=== PATIENT | female | born 1965 | race Caucasian/White ===

== ENCOUNTER 2017-09-15 14:55 | Emergency (ER) | payer SELFPAY ==
--- NOTE | 2017-09-15 17:08 | UC ---
Respiratory Complaint HPI - HPI Summary HPI Summary: Pt presents with body aches, cough, tiredness, and sinus congestion since yesterday. She works as a cashier manager. She has been around several friends that have been dx'd with the flu. She has not taken anything for his symptoms. Denies fever, chills, SOB, chest pain, abdominal pain, n/v/d/c Her BP is elevated today. She currently denies headache, dizziness, weakness, vision changes, numbness, or tingling. On manual recheck it was 168/80 - History of Current Complaint Chief Complaint: UCRespiratory Stated Complaint: COUGH, CONGESTED Time Seen by Provider: 09/15/17 17:07 Hx Obtained From: Patient Hx Last Menstrual Period: 1 MONTH AGO Onset/Duration: Sudden Onset Timing: Constant Severity Initially: Mild Severity Currently: Mild Character: Cough: Nonproductive - Allergies/Home Medications Allergies/Adverse Reactions: Allergies Allergy/AdvReac Type Severity Reaction Status Date / Time Bee Venom Allergy Anaphylatic Verified 09/15/17 15:47 Shock Home Medications: Home Medications Gabapentin CAP(*) [Neurontin 300 CAP(*)] 300 mg PO BID 09/15/17 [History Confirmed 09/15/17] PMH/Surg Hx/FS Hx/Imm Hx - Surgical History Surgical History: Yes Surgery Procedure, Year, and Place: 4 C-SECTIONS, ORIF RIGHT HUMERUS, TONSILLECTOMY - Family History Known Family History: Positive: Cardiac Disease, Hypertension - mother - Social History Occupation: Employed Full-time Lives: With Family Alcohol Use: None Substance Use Type: None Smoking Status (MU): Current Every Day Smoker Type: Cigarettes Amount Used/How Often: 5/DAY Household Exposure Type: Cigarettes Cessation Counseling: Counseled 3+Min - 10 Min Review of Systems Constitutional: Fatigue, Other - Body aches Skin: Negative Eyes: Negative ENT: Nasal Discharge, Sinus Congestion, Sinus Pain/Tenderness Respiratory: Cough Cardiovascular: Negative Gastrointestinal: Negative Psychological: Negative All Other Systems Reviewed And Are Negative: Yes Physical Exam Triage Information Reviewed: Yes Appearance: Well-Appearing, No Pain Distress, Well-Nourished Vital Signs: Initial Vital Signs Temp 97.9 F 09/15/17 15:43 Pulse 103 09/15/17 15:43 Resp 18 09/15/17 15:43 BP 189/78 09/15/17 15:43 Pulse Ox 95 01/19/18 15:43 Vital Signs Reviewed: Yes Eyes: Positive: Conjunctiva Clear. Negative: Conjunctiva Inflamed, Discharge ENT: Positive: Hearing grossly normal, Pharynx normal, TMs normal, Uvula midline. Negative: Pharyngeal erythema, Nasal congestion, Nasal drainage, TM bulging, TM dull, TM red, Tonsillar swelling, Tonsillar exudate, Hoarse voice, Sinus tenderness Neck: Positive: Supple, Nontender, No Lymphadenopathy Respiratory: Positive: Chest non-tender, No respiratory distress, No accessory muscle use, Wheezing - Moderate throughout Cardiovascular: Positive: RRR, No Murmur, Pulses Normal Neurological: Positive: Alert Psychological: Positive: Age Appropriate Behavior Skin: Negative: rashes UC Diagnostic Evaluation - Laboratory O2 Sat by Pulse Oximetry: 95 Re-Evaluation - Re-Evaluation First Eval Re-Evaluation Time: 18:06 Change: Improved Comment: Improved lung sounds. No wheezing. Pt reports feeling like she can "take a deep breath again" Respiratory Course/Dx - Course Course Of Treatment: POC flu negative. Her wheezing was very scant after duoneb treatment. Given her symptoms and recent exposure, will treat as influenza and rx for Tamiflu and Albuterol. - Differential Dx/Diagnosis Provider Diagnoses: Body aches. Fatigue. Bronchitis Discharge - Discharge Plan Condition: Stable Disposition: HOME Prescriptions: Albuterol HFA INHALER* [Ventolin HFA Inhaler*] 1 - 2 puff INH Q6H PRN #1 mdi PRN Reason: Sob/Wheezing Oseltamivir CAP* [Tamiflu CAP*] 75 mg PO BID #10 cap Patient Education Materials: Influenza (DC), Acute Bronchitis (ED) Referrals: No Primary Care Phys,NOPCP [Primary Care Provider] - Additional Instructions: If you develop a fever, shortness of breath, chest pain, new or worsening symptoms - please call your PCP or go to the ED. Your blood pressure was high at todays visit. Please see your primary provider within 4 weeks for recheck and re-evaluation.
[2017-09-15] MEDS ORDERED: Albuterol/Ipratropium NEB.SOL* Albuterol 2.5 MG/Ipratropium 0.5 MG 3 ML INH ONE (17:42)
[2017-09-15 19:08] VITALS: BP 180/78
== END 2017-09-15 18:15 | disposition home or self-care (01) ==
LOC: UCEAST 14:55
DX: J40 Bronchitis, not specified as acute or chronic (principal); R53.83 Other fatigue; R52 Pain, unspecified; R03.0 Elevated blood-pressure reading, without diagnosis of hypertension; F17.210 Nicotine dependence, cigarettes, uncomplicated; Z91.030 Bee allergy status
CPT/HCPCS: 87502; 99212; A9270-GY; G0463

== ENCOUNTER 2018-01-08 07:13 | Day surgery (SDC) | payer OTHER ==
[~2018-01-08 07:13] MED LIST: Buffered Lidocaine 0.9% SYRIN* 5 ML/SYR SYRINGE INTRADERM ONE; Dexamethasone IV* 4 MG/ML 1 ML (4 MG) IV SLOW PU ONE; Famotidine TAB* 20 MG PO ONE
[2018-01-08] MEDS ORDERED: Dexamethasone IV* 4 MG/ML 1 ML (4 MG) ONE (07:19)
[2018-01-08] MEDS ORDERED: Famotidine TAB* 20 MG ONE (07:20)
[2018-01-08] MEDS ORDERED: ceFAZolin 2 GM PREMIX (*) 2 GM/50 ML BAG IVPB ONE (07:21)
[2018-01-08] MEDS ORDERED: Midazolam* 1 MG/ML 2 ML VIAL (2 MG) ONE (08:32)
[2018-01-08] MEDS ORDERED: fentaNYL* 50 MCG/ML 2 ML VIAL (100 MCG VIAL) ONE ×2 (08:32→11:26)
[2018-01-08] MEDS ORDERED: Bupivacaine 0.5% PF 10 ML VIAL INJ ONE (09:58)
[2018-01-08] MEDS ORDERED: Propofol* 10 MG/ML 20 ML BTL IV PUSH ONE (09:58)
[2018-01-08] MEDS ORDERED: Naloxone* 0.4 MG/ML 1 ML VIAL IV PRN (10:05)
[2018-01-08] MEDS ORDERED: Ondansetron ODT TAB* 4 MG PO PRN (10:05)
[2018-01-08] MEDS ORDERED: oxyCODONE TAB* 5 MG TAB ONE (11:26)
[2018-01-08] MEDS ORDERED: Acetaminophen ADULT LIQ* 650 MG/20.3 ML UDC ONE (11:27)
[2018-01-08] MEDS: fentaNYL* 50 MCG/ML 2 ML VIAL (100 MCG VIAL) IV PRN ×2 (11:32→11:55)
[2018-01-08 12:46] VITALS: BP 160/90
--- NOTE | 2018-01-09 07:31 | OP ---
DATE OF OPERATION: 01/08/18 - [facility] DATE OF : 63 ATTENDING SURGEON: Alexey Abad MD CAR FRAMER: Talita Martinez PA-C. PRE-OP DIAGNOSIS: Peroneus brevis split tear, left ankle. POST-OP DIAGNOSIS: Peroneus brevis split tear, left ankle. OPERATIVE PROCEDURE: Left peroneus brevis repair and groove deepening, left fibula. DESCRIPTION OF PROCEDURE: The patient was taken to the operating room where a longitudinal incision was made over the fibula coursing down to the os peroneum. The peroneus brevis was inspected and noted to have a 4 to 5 cm longitudinal split tear at the posterior aspect of the lateral malleolus. Peroneus longus was intact. The peroneus brevis was debrided slightly and then tubularized with a running 3-0 Vicryl suture at this level. The groove was deepened behind the fibula by creating an osteotomy through the posterolateral cortex driving the posterior aspect of the groove anteriorly. Two lone sutures of #1 Vicryl were then passed to repair the retinaculum and the remaining portion of the peroneal sheath repaired up to the fibular periosteum. We then irrigated thoroughly closing with Vicryl and nylon sutures and a compression dressing, plaster splint. [id number]/[facility] #: [id number] [facility] CENTERShira
== END 2018-01-08 12:59 | disposition home or self-care (01) ==
LOC: OR 07:13
PROVIDERS: ATTEND Orthopaedic Surgery
DX: S96.812A Strain of other specified muscles and tendons at ankle and foot level, left foot, initial encounter (principal); W22.8XXA Striking against or struck by other objects, initial encounter; Y92.89 Other specified places as the place of occurrence of the external cause; Y99.0 Civilian activity done for income or pay; F17.210 Nicotine dependence, cigarettes, uncomplicated; T78.49XA Other allergy, initial encounter
CPT/HCPCS: 88304; A9270-GY; J0690; J1100; J2250; J2704; J3010

== ENCOUNTER → 2018-10-08 08:50 | Day surgery (SDC) | payer OTHER ==
[~2018-10-08 08:50] MED LIST changes: +Acetaminophen TAB* 325 MG PO PRN; -Buffered Lidocaine 0.9% SYRIN* 5 ML/SYR SYRINGE INTRADERM ONE; +Buffered Lidocaine 1% SYRIN* 1 ML/SYRINGE INTRADERM ONE; +Bupivacaine 0.5%* 50 ML VIAL ONE; -Dexamethasone IV* 4 MG/ML 1 ML (4 MG) IV SLOW PU ONE; +DiMENhydriNATE IV* 50 MG/ML VIAL IV PUSH PRN; -Famotidine TAB* 20 MG PO ONE; +Ketorolac INJ* 30 MG/ML 1 ML VIAL IV PRN; +Lactated Ringers 1000 ML Bag* 1,000 ML IV SCH; +Lidocaine 2% PF * 5 ML VIAL ONE; +Lidocaine 2% PF* 10 ML AMP ONE; +Midazolam* 1 MG/ML 2 ML VIAL (2 MG) ONE; +Naloxone* 0.4 MG/ML 1 ML VIAL IV PRN; +Propofol* 10 MG/ML 20 ML BTL ONE; +Succinylcholine* 20 MG/ML 10 ML VIAL ONE; +Sugammadex * 200 MG/2 ML VIAL IV PUSH ONE; +ceFAZolin 2 GM PREMIX in ORs 2 GM/50 ML BAG IVPB ONE; +fentaNYL* 50 MCG/ML 2 ML VIAL (100 MCG VIAL) IV PRN; +fentaNYL* 50 MCG/ML 2 ML VIAL (100 MCG VIAL) ONE; +oxyCODONE TAB* 5 MG TAB ONE; +oxyCODONE TAB* 5 MG TAB PO PRN
[2018-10-08] MEDS: Buffered Lidocaine 1% SYRIN* 1 ML/SYRINGE INTRADERM ONE ×2 (10:01→10:02)
--- NOTE | 2018-10-08 13:09 | OP ---
OPERATIVE REPORT: DATE OF OPERATION: 10/08/18 DATE OF : 63 SURGEON: Alexey Abad MD. PRE-OP DIAGNOSIS: Scarred recurrent tendinitis, left peroneus brevis and longus tendons. POST-OP DIAGNOSES: Scarred recurrent tendinitis, left peroneus brevis and longus tendons with small splitting area of peroneus brevis and scarring into the peroneus brevis and significant tenosynovitis of the peroneus brevis. PROCEDURES PERFORMED: Debridement of the peroneus brevis, resection of synovium, debridement of the groove behind the fibula, and tenodesis peroneus brevis to peroneus longus. DESCRIPTION OF PROCEDURE: The patient was taken to the operating room, lateral positioning used. We opened up longitudinally over the distal fibula. I reflected the posterior retinaculum away from th e posterior edge of the fibula. The peroneus brevis was not tracking at all, completely scarred in d own into the fibula groove area. We freed up the tendon away from this groove and the synovectomy of the groove itself. The peroneus brevis had some mild striation longitudinally in this portion throu gh the back of the groove. These areas were debrided with a dissecting scissor as well as synovectom y of both brevis longus tendons. We then performed a tenodesis using a 3-0 Monocryl whipstitch with the more lateral and then the more medial edges of both the tendons. They tracked well into the fibu la at this point, so no additional groove modification was performed. We then irrigated thoroughly, bringing the retinaculum up to the periosteum with interrupted 2-0 Vicryl sutures. We irrigated the soft tissues and closed with 3-0 Monocryl, jacinta for the skin and a compression dressing and plaste r splint. [id number]/[facility] #: [id number]
[2018-10-08 13:44] VITALS: BP 164/84
== END | disposition home or self-care (01) ==
LOC: OR 08:50
PROVIDERS: ATTEND Orthopaedic Surgery
DX: M76.72 Peroneal tendinitis, left leg (principal); Z87.828 Personal history of other (healed) physical injury and trauma; Z87.891 Personal history of nicotine dependence; J45.909 Unspecified asthma, uncomplicated; Z87.442 Personal history of urinary calculi
CPT/HCPCS: A9270-GY; J0330; J0690; J2001; J2250; J2704; J3010

== ENCOUNTER 2019-09-04 08:43 | Day surgery (SDC) | payer OTHER ==
[~2019-09-04 08:43] MED LIST changes: -Acetaminophen TAB* 325 MG PO PRN; -Bupivacaine 0.5%* 50 ML VIAL ONE; -DiMENhydriNATE IV* 50 MG/ML VIAL IV PUSH PRN; -Ketorolac INJ* 30 MG/ML 1 ML VIAL IV PRN; -Lidocaine 2% PF * 5 ML VIAL ONE; -Lidocaine 2% PF* 10 ML AMP ONE; -Midazolam* 1 MG/ML 2 ML VIAL (2 MG) ONE; -Naloxone* 0.4 MG/ML 1 ML VIAL IV PRN; -Propofol* 10 MG/ML 20 ML BTL ONE; -Succinylcholine* 20 MG/ML 10 ML VIAL ONE; -Sugammadex * 200 MG/2 ML VIAL IV PUSH ONE; -ceFAZolin 2 GM PREMIX in ORs 2 GM/50 ML BAG IVPB ONE; -fentaNYL* 50 MCG/ML 2 ML VIAL (100 MCG VIAL) IV PRN; -fentaNYL* 50 MCG/ML 2 ML VIAL (100 MCG VIAL) ONE; -oxyCODONE TAB* 5 MG TAB ONE; -oxyCODONE TAB* 5 MG TAB PO PRN
[2019-09-04] MEDS ORDERED: Buffered Lidocaine 1% SYRIN* 1 ML/SYRINGE INTRADERM ONE (09:02)
[2019-09-04] MEDS ORDERED: ceFAZolin 2 GM in NS PREMIX(*) 2 GM/100 ML BAG IVPB ONE (09:03)
[2019-09-04] MEDS ORDERED: Midazolam* 1 MG/ML 2 ML VIAL (2 MG) ONE (10:46)
[2019-09-04] MEDS ORDERED: fentaNYL* 50 MCG/ML 2 ML VIAL (100 MCG VIAL) ONE (10:46)
[2019-09-04] MEDS ORDERED: Ibuprofen TAB* 400 MG PO PRN (10:55)
[2019-09-04] MEDS ORDERED: Naloxone* 0.4 MG/ML 1 ML VIAL IV PRN (10:56)
[2019-09-04] MEDS ORDERED: HYDROmorphone INJ1* 1 MG/ML SYRINGE IV PRN (10:56)
[2019-09-04] MEDS ORDERED: oxyCODONE TAB* 5 MG TAB PO PRN (10:56)
[2019-09-04] MEDS ORDERED: Ropivacaine 0.2% * 2 MG/ML VIAL ONE (11:11)
[2019-09-04] MEDS ORDERED: Lidocaine 1% w EPI 1:200,000* SDV 30 ML VIAL ONE (11:11)
[2019-09-04] MEDS ORDERED: Lidocaine 2% PF* 10 ML AMP ONE (11:46)
[2019-09-04] MEDS ORDERED: Dexamethasone IV* 4 MG/ML 1 ML (4 MG) ONE (11:46)
[2019-09-04] MEDS ORDERED: Ondansetron INJ* 2 MG/ML VIAL ONE (11:46)
[2019-09-04] MEDS ORDERED: Propofol* 10 MG/ML 20 ML BTL ONE (11:46)
[2019-09-04] MEDS ORDERED: Phenylephrine 40 MCG/ML SYRINGE ONE (11:58)
[2019-09-04] MEDS ORDERED: oxyCODONE TAB* 5 MG TAB ONE (12:54)
[2019-09-04 13:49] VITALS: BP 145/94
--- NOTE | 2019-09-04 21:21 | OP ---
DATE OF OPERATION: 09/04/19 [facility] DATE OF : 63 SURGEON: Pineda Mcgowan MD COMMUNITY MIDWIFE: GHADA Fields. An assistant to the dean was needed for the entirety of the case to help with positioning, retraction, and was utilized throughout all portions of the case. ANESTHESIOLOGIST: Dr. Olivier. ANESTHESIA: General. PRE-OP DIAGNOSIS: Right knee patellar chondrosis and synovitis. POST-OP DIAGNOSIS: Right knee patellar chondrosis and synovitis. OPERATIVE PROCEDURE: Right knee arthroscopy with synovectomy, the anteromedial and prepatellar compartments as well as chondroplasty of the patella and the trochlea. COMPLICATIONS: None. ESTIMATED BLOOD LOSS: Minimal. INDICATIONS: Evangelina Acosta is a 54-year-old female who has had a workers' comp claim for several years for her foot and knee. She was diagnosed with a small chondral flap about her patella. She has failed conservative management. She has persistent pain. She knows that at some point she will need to have something along the lines of replacement done, but she has not yet been treated with synovectomy or chondroplasty. She does have a sharp catching and mechanical symptoms. After extensive discussion of risks and benefits of operative versus nonoperative treatment, she has elected to proceed with surgical treatment. Risks include but not limited to bleeding; infection; damage to nerves, vessels, surrounding structures; wound nonhealing; persistent pain; need for further surgery; scarring; stiffness; incomplete relief of symptoms; and risks of anesthesia. DESCRIPTION OF PROCEDURE: The patient was greeted in the preoperative area by the attending surgeon. Correct extremity was marked and consent was confirmed. The patient was brought back to the operative suite, placed in supine position on the operating table, then underwent general anesthesia and LMA intubation after which she was appropriately positioned on the operating table. A non-sterile tourniquet was placed high in the proximal thigh. The lateral post was positioned. The right leg was then prepped and draped in the usual sterile fashion beginning with chlorhexidine soap, scrub, and alcohol wipe and a final prep of ChloraPrep. After appropriate surgical pause indicating side, site, procedure and administration of antibiotics, the knee was intra-articularly injected with 1% lidocaine with epi. The anterolateral portal was made sharply with 11 blade. Scope was introduced to the joint. There was abundant synovitis and thick scar tissue that was present. Anteromedial portal was made in an outside-in fashion. A shaver was used to debride back the thick bursa. There were plica and there was thick band of tissue anteriorly as well as medial and laterally. These were all debrided back carefully. The trochlea had some evidence of grade 2 changes with unstable flaps. This was debrided back using shaver. ACL and PCL were intact. The medial compartment was examined and was found to be intact and pristine. The lateral compartment was intact as well. No evidence of chondral changes nor meniscal pathology. The knee was placed in full extension. The patellofemoral joint was examined. Again the trochlea had some small areas where there appeared to be kissing lesion with the patella, which had about the superior central aspect grade 2 changes, possibly borderline grade 3. These were debrided back. Once the synovitis was complete, the patella was completely mobilized and excess scar tissue was removed. The knee was then thoroughly lavaged. Final images were obtained. Portals were closed with 3-0 nylon. Sterile dressings and Cryo/Cuff were applied. She was awoken from anesthesia and transferred to PACU in stable condition. POSTOPERATIVE PLAN: She will be weightbearing as tolerated with crutches. Range of motion as tolerated. Discharged on pain medications. DVT prophylaxis was considered but deferred due to no previous personal or family history. I will see the patient back in 10 to 14 days. [id number]/[facility] #: [id number] [place]
== END 2019-09-04 13:53 | disposition home or self-care (01) ==
LOC: OR 08:43
PROVIDERS: ATTEND Orthopaedic Surgery
DX: M17.31 Unilateral post-traumatic osteoarthritis, right knee (principal); M65.861 Other synovitis and tenosynovitis, right lower leg; M93.861 Other specified osteochondropathies, right lower leg; M25.561 Pain in right knee; J30.2 Other seasonal allergic rhinitis; Z87.891 Personal history of nicotine dependence
CPT/HCPCS: A9270-GY; J0690; J1100; J2001; J2250; J2405; J2704; J2795; J3010

== ENCOUNTER 2020-02-20 22:44 | Inpatient (IN) ==
[2020-02-20] MEDS ORDERED: Albuterol 0.5% CONC NEB.SOL 5 mg/ml 20 ml BOT INH ONE (22:49)
[2020-02-20] MEDS ORDERED: Dexamethasone IV 4 MG/ML VIAL 1 ml VIAL PO ONE (22:49)
[2020-02-20 23:09] LABS: ABS Basophils 0.1 10^3/ul (0-0.2); ABS Eosinophils 0.2 10^3/ul (0-0.6); ABS Monocytes 1.2 10^3/ul (0-0.8); Eosinophil % 1.1 %; Hematocrit 42 % (35-47); Hemoglobin 13.1 g/dL (12.0-16.0); Lymphocyte % 26.4 %; Mean Corpuscular HGB Conc 31 g/dL (31-36); Mean Corpuscular Hemoglobin 27 pg (27-31); Mean Corpuscular Volume 85 fL (80-97); Mean Platelet Volume 9.8 fL (7.4-10.4); Nucleated Red Blood Cells % 0.1; Platelet Count 315 10^3/uL (150-450); Red Blood Count 4.91 10^6 /uL (3.70-4.87); Red Cell Distribution Width 16 % (10-15)
[2020-02-20] MEDS ORDERED: nitroGLYCERIN DRIP 25,000 MCG/250 ML BTL IV ONE (23:20)
[2020-02-20] MEDS ORDERED: Furosemide 40 mg/4 ml IV VIAL IV SLOW PU ONE (23:20)
[2020-02-20 23:28] LABS: ALT 43 U/L (7-52); AST 54 U/L (13-39); Albumin 3.8 g/dL (3.2-5.2); Albumin/Globulin Ratio 1.2 (1-3); Alkaline Phosphatase 102 U/L (34-104); Anion Gap 9 mmol/L (2-11); BUN/Creatinine Ratio 9.5 (8-20); Blood Urea Nitrogen 10 mg/dL (6-24); CO2 Carbon Dioxide 25 mmol/L (22-32); Calcium 8.7 mg/dL (8.6-10.3); Chloride 102 mmol/L (101-111); EGFR African American 65.8 (>60); EGFR Non-African American 54.4 (>60); Globulin 3.3 g/dL (2-4); Glucose 383 mg/dL (70-100); Potassium 4.8 mmol/L (3.5-5.0); Sodium 136 mmol/L (135-145); Total Protein 7.1 g/dL (6.4-8.9)
[2020-02-20] MEDS ORDERED: Rocuronium 50 mg VIAL 10 mg/ml 5 ml VIAL (50 mg) ONE (23:31)
[2020-02-20] MEDS ORDERED: Succinylcholine 200 mg VIAL 20 mg/ml 10 ml VIAL (200 mg) ONE ×2 (23:32→23:56)
[2020-02-20 23:37] LABS: Troponin I 0.06 ng/mL (<0.03)
[2020-02-20] MEDS ORDERED: Succinylcholine 200 mg VIAL 20 mg/ml 10 ml VIAL (200 mg) IV ONE (23:40)
[2020-02-20] MEDS ORDERED: fentaNYL 100 mcg/2 ml 50 MCG/ML VIAL IV SLOW PU ONE (23:42)
[2020-02-20] MEDS ORDERED: Etomidate 20 mg/10 ml 2 MG/ML 10 ml VIAL IV ONE (23:42)
[2020-02-20] MEDS ORDERED: Propofol 10 mg/ml 100 ML BTL 100 ML IV ONE (23:42)
[2020-02-20] MEDS ORDERED: Propofol 10 mg/ml 100 ML BTL 100 ML ONE (23:48)
[2020-02-20] MEDS ORDERED: Etomidate 40 mg/20 ml (2 MG/ML) 20 ml VIAL (40 mg) ONE (23:56)
[2020-02-21] MEDS ORDERED: Ondansetron 4 mg VIAL 2 MG/ML 2 ml VIAL IV PRN (00:27)
[2020-02-21] MEDS ORDERED: Dextrose 50% Syringe 50 ml 25 GM/50 ML SYRINGE IV PUSH PRN (00:34)
[2020-02-21 00:54] LABS: Urine Appearance Cloudy; Urine Bilirubin Negative (Negative); Urine Blood 1+ (Negative); Urine Color Yellow; Urine Glucose 1+(50 mg/dL) (Negative); Urine Ketones Negative (Negative); Urine Nitrite Negative (Negative); Urine Protein 2+(100 mg/dL) (Negative); Urine Specific Gravity 1.006 (1.010-1.030); Urine Urobilinogen Negative (Negative)
[2020-02-21 00:59] LABS: Urine Bacteria Absent (Absent); Urine Red Blood Cell Trace(0-2/hpf) (Absent); Urine Squamous Epithelial Cell Present (Absent); Urine White Blood Cell Trace(0-5/hpf) (Absent)
[2020-02-21] MEDS ORDERED: Propofol 10 mg/ml 100 ML BTL 100 ML IV SCH (01:00)
[2020-02-21] MEDS ORDERED: Propofol* 20 ML VIAL - FOR IV LINE PRIMING ONLY SCH (01:00)
[2020-02-21] MEDS ORDERED: Midazolam 2 mg/2 ml VIAL 1 mg/ml 2 ml VIAL (2 mg) ONE (01:21)
[2020-02-21] MEDS ORDERED: Midazolam 2 mg/2 ml VIAL 1 mg/ml 2 ml VIAL (2 mg) IV SLOW PU ONE (01:21)
[2020-02-21] MEDS ORDERED: fentaNYL 100 mcg/2 ml 50 MCG/ML VIAL IV SLOW PU ONE (01:22)
[2020-02-21] MEDS ORDERED: Iodixanol (CONTRAST) 320 MG/ML 100 ML SDV IV ONE (02:06)
[2020-02-21 03:59] LABS: INR 1.1 (0.82-1.09)
[2020-02-21 04:13] LABS: Troponin I 0.32 ng/mL (<0.03)
[2020-02-21] MEDS: Chlorhexidine MOUTHWASH 0.12% 15 ML UDC TOPICAL SCH (04:54)
[2020-02-21] MEDS: Insulin LISPRO 100 units/ml(*) SUBCUT SCH ×2 (05:50→12:20)
[2020-02-21] MEDS: Heparin 5000 UNITS/ML VIAL(*) 1 ml vial SUBCUT SCH ×3 (05:51→21:37)
[2020-02-21 05:53] LABS: ABS Lymphocytes 0.7 10^3/ul (1.0-4.8); ABS Monocytes 0.4 10^3/ul (0-0.8); Eosinophil % 0.3 %; Hematocrit 37 % (35-47); Hemoglobin 12.3 g/dL (12.0-16.0); Lymphocyte % 4.2 %; Mean Corpuscular HGB Conc 33 g/dL (31-36); Mean Corpuscular Hemoglobin 27 pg (27-31); Mean Corpuscular Volume 83 fL (80-97); Mean Platelet Volume 9.4 fL (7.4-10.4); Platelet Count 193 10^3/uL (150-450); Red Blood Count 4.49 10^6 /uL (3.70-4.87); Red Cell Distribution Width 16 % (10-15); White Blood Count 16.5 10^3/uL (3.5-10.8)
[2020-02-21 06:10] LABS: Anion Gap 7 mmol/L (2-11); BUN/Creatinine Ratio 13.8 (8-20); Blood Urea Nitrogen 13 mg/dL (6-24); CO2 Carbon Dioxide 28 mmol/L (22-32); Calcium 8.8 mg/dL (8.6-10.3); Chloride 103 mmol/L (101-111); EGFR African American 74.8 (>60); EGFR Non-African American 61.8 (>60); Glucose 142 mg/dL (70-100); Potassium 4.7 mmol/L (3.5-5.0); Sodium 138 mmol/L (135-145)
[2020-02-21] MEDS: Famotidine IV 10 MG/ML 2 ml VIAL (20 mg) IV SLOW PU SCH (07:40)
[2020-02-21] MEDS: Furosemide 40 mg/4 ml IV VIAL IV SLOW PU SCH ×2 (07:46→18:28)
[2020-02-21] MEDS: Aspirin EC 81 mg TAB.EC (enteric coated) PO SCH (07:52)
[2020-02-21] MEDS ORDERED: Perflutren Lipid Microsphere 3 ML VIAL ONE ×2 (08:03→08:11)
[2020-02-21] MEDS ORDERED: Albuterol HFA INHALER 8 gm MDI INH PRN (10:36)
[2020-02-21] MEDS: Albuterol 2.5mg/3 ml (0.083%) NEB.SOLN INH PRN (23:43)
[2020-02-22] MEDS: Heparin 5000 UNITS/ML VIAL(*) 1 ml vial SUBCUT SCH ×3 (05:52→20:45)
[2020-02-22 06:06] LABS: Hematocrit 37 % (35-47); Hemoglobin 12.2 g/dL (12.0-16.0); Mean Corpuscular HGB Conc 33 g/dL (31-36); Mean Corpuscular Hemoglobin 27 pg (27-31); Mean Corpuscular Volume 82 fL (80-97); Mean Platelet Volume 9.6 fL (7.4-10.4); Platelet Count 206 10^3/uL (150-450); Red Blood Count 4.48 10^6 /uL (3.70-4.87); Red Cell Distribution Width 16 % (10-15); White Blood Count 16.1 10^3/uL (3.5-10.8)
[2020-02-22 06:22] LABS: BUN/Creatinine Ratio 28.6 (8-20); Calcium 9.3 mg/dL (8.6-10.3); EGFR African American 94.2 (>60); EGFR Non-African American 77.8 (>60); HDL Cholesterol 31.5 mg/dL; Magnesium 2.2 mg/dL (1.9-2.7)
[2020-02-22 06:37] LABS: TSH (Thyroid Stimulating Horm) 0.37 mcIU/mL (0.34-5.60)
[2020-02-22] MEDS: Aspirin EC 81 mg TAB.EC (enteric coated) PO SCH (08:29)
[2020-02-22] MEDS: Furosemide 40 mg/4 ml IV VIAL IV SLOW PU SCH ×2 (08:32→17:21)
[2020-02-22] MEDS: Famotidine IV 10 MG/ML 2 ml VIAL (20 mg) IV SLOW PU SCH (08:32)
[2020-02-22] MEDS: Albuterol 2.5mg/3 ml (0.083%) NEB.SOLN INH PRN ×2 (14:56→19:54)
[2020-02-23] MEDS ORDERED: guaiFENesin/CODIENE 100mg/10mg 5 ML UDC PO ONE (03:55)
[2020-02-23 06:36] LABS: BUN/Creatinine Ratio 27.5 (8-20); Calcium 9.3 mg/dL (8.6-10.3); EGFR African American 90.1 (>60); EGFR Non-African American 74.5 (>60); Magnesium 1.9 mg/dL (1.9-2.7); Potassium 3.7 mmol/L (3.5-5.0)
[2020-02-23] MEDS ORDERED: Potassium Chlor 20 meq TAB.ER PO ONE (07:32)
[2020-02-23 07:39] LABS: Free T4 1.03 ng/dL (0.61-1.12)
[2020-02-23] MEDS ORDERED: GuaiFENesin DM 100 mg/10 mg in 5 ML UDC PO PRN (08:17)
[2020-02-23] MEDS: Aspirin EC 81 mg TAB.EC (enteric coated) PO SCH (08:37)
[2020-02-23] MEDS: Furosemide 40 mg/4 ml IV VIAL IV SLOW PU SCH (10:15)
[2020-02-23] MEDS: Albuterol 2.5mg/3 ml (0.083%) NEB.SOLN INH PRN (20:17)
[2020-02-23] MEDS ORDERED: Enoxaparin 40 MG/0.4 ML SYR(*) SUBCUT SCH (21:00)
[2020-02-24 05:22] LABS: ABS Basophils 0.1 10^3/ul (0-0.2); ABS Eosinophils 0.1 10^3/ul (0-0.6); ABS Lymphocytes 2.7 10^3/ul (1.0-4.8); Eosinophil % 0.9 %; Hematocrit 40 % (35-47); Hemoglobin 13.2 g/dL (12.0-16.0); Lymphocyte % 24.3 %; Mean Corpuscular HGB Conc 33 g/dL (31-36); Mean Corpuscular Hemoglobin 27 pg (27-31); Mean Corpuscular Volume 82 fL (80-97); Platelet Count 221 10^3/uL (150-450); Red Blood Count 4.87 10^6 /uL (3.70-4.87); Red Cell Distribution Width 16 % (10-15); White Blood Count 11.2 10^3/uL (3.5-10.8)
[2020-02-24 06:13] LABS: BUN/Creatinine Ratio 24.6 (8-20); Calcium 9.6 mg/dL (8.6-10.3); EGFR African American 106.9 (>60); EGFR Non-African American 88.3 (>60); Potassium 4.3 mmol/L (3.5-5.0)
[2020-02-24] MEDS: Aspirin EC 81 mg TAB.EC (enteric coated) PO SCH (08:32)
[2020-02-24] MEDS ORDERED: Heparin 1,000 UNIT/ML CATH LAB 1,000 10 ml (10,000 UNITS) IV ONE (08:43)
[2020-02-24] MEDS ORDERED: VERAPAMIL 2.5 MG/ML 2 ML VIAL ** 5 mg/2 ml ONE (08:43)
[2020-02-24] MEDS ORDERED: nitroGLYCERIN DRIP 25,000 MCG/250 ML BTL ONE (08:44)
[2020-02-24] MEDS ORDERED: Lidocaine 1% VIAL 10 MG/ML VIAL ONE (08:44)
[2020-02-24] MEDS ORDERED: Iohexol 350 (CONTRAST) 200 ML MDV IV ONE (08:44)
[2020-02-24] MEDS ORDERED: Heparin 2 UNITS/ML 1000 mls 2,000 ML IV ONE (08:44)
[2020-02-24] MEDS ORDERED: fentaNYL 100 mcg/2 ml 50 MCG/ML VIAL ONE (09:07)
[2020-02-24] MEDS ORDERED: Midazolam 5 mg/5 ml VIAL 1 mg/ml 5 ml VIAL (5 mg) ONE (09:08)
[2020-02-24] MEDS ORDERED: oxyCODONE/Acetamin 5/325 mg TAB PO PRN (09:51)
[2020-02-24] MEDS ORDERED: NS 0.9% 1000 ml BAG 1,000 ML IV SCH (10:00)
[2020-02-24] MEDS: Albuterol 2.5mg/3 ml (0.083%) NEB.SOLN INH PRN (22:09)
[2020-02-25 05:37] VITALS: BP 150/58
== END 2020-02-25 05:44 | disposition short-term general hospital (02) | DRG 286 ==
LOC: ED 22:44 → ICU 02-21 00:34 → MEDTELE 02-21 15:30
PROVIDERS: ADMIT Nurse Practitioner Family; ATTEND Internal Medicine